=== PATIENT | female | born 1945 | race Caucasian/White ===

== ENCOUNTER → 2023-09-30 11:12 | Outpatient (REF) | payer MEDICARE, BC, SELFPAY | LOC: WDC 11:12 | PROVIDERS: ATTENDING PHYSICIAN Obstetrics & Gynecology; FAMILY PHYSICIAN Nurse Practitioner Adult Health | DX: Z12.31 Encounter for screening mammogram for malignant neoplasm of breast (principal); Z78.0 Asymptomatic menopausal state | CPT/HCPCS: 77063; 77067; 77080 ==

== ENCOUNTER → 2024-09-30 07:52 | Outpatient (REF) | payer MEDICARE, BC, SELFPAY | LOC: WDC 07:52 | PROVIDERS: ATTENDING PHYSICIAN Obstetrics & Gynecology | DX: Z12.31 Encounter for screening mammogram for malignant neoplasm of breast (principal) | CPT/HCPCS: 77063; 77067 ==